=== PATIENT | female | born 1980 | race Caucasian/White ===

== ENCOUNTER → 2020-01-28 | Outpatient (CLI) | payer OTHER ==
[2020-01-28 12:17] LABS: BASOPHIL % 0.5 % (0-2); PLATELET COUNT 216 x10^3mcL (130-400); RED CELL DISTRIBUTION WIDTH 13.6 % (11.5-14.5)
[2020-01-28 12:27] LABS: CALCIUM 8.4 mg/dL (8.5-10.1); CARBON DIOXIDE 28.5 mmol/L (21-32); CHLORIDE SERUM 102 mmol/L (98-107); CREATININE SERUM 0.9 mg/dL (0.6-1.0); GFR1 > 60 mL/min; GLUCOSE SERUM 92 mg/dL (74-106); POTASSIUM SERUM 3.4 mmol/L (3.5-5.1); SODIUM SERUM 138 mmol/L (136-145)
[2020-01-28 12:40] LABS: ALBUMIN 3.7 g/dL (3.4-5.0); ALKALINE PHOSPHATASE 77 U/L (46-116); ALT/SGPT 19 U/L (14-59); AST/SGOT 16 U/L (15-37); BILIRUBIN TOTAL 0.2 mg/dL (0.20-1.00); CHOLESTEROL 176 mg/dL (<200); CHOLESTEROL/HDL RATIO 3.3; HDL CHOLESTEROL 53 mg/dL (40-60); TOTAL PROTEIN, SERUM 7.8 g/dL (6.4-8.2); TRIGLYCERIDES 85 mg/dL (<150); URIC ACID 3.7 mg/dL (2.6-6.0)
[2020-01-28 13:37] LABS: UA SPECIFIC GRAVITY >=1.030 (1.005-1.035); microscopic required? YES; urine erythrocyte TRACE (NEGATIVE)
== END | disposition home or self-care (01) ==
LOC: LB 11:41
PROVIDERS: ATTEND Internal Medicine
DX: M54.5 Low back pain (principal); M25.559 Pain in unspecified hip

== ENCOUNTER 2020-02-24 11:51 | Emergency (ER) | payer OTHER, SELFPAY ==
[~2020-02-24] VITALS: Ht 167.6 cm; Wt 72.6 kg
[2020-02-24 11:58] VITALS: Ht 167.6 cm; Wt 72.6 kg
[2020-02-24 15:28] VITALS: BP 105/60
== END 2020-02-24 15:28 | disposition home or self-care (01) ==
LOC: ED 11:51
DX: B34.9 Viral infection, unspecified (principal); G43.909 Migraine, unspecified, not intractable, without status migrainosus; Z20.828 Contact with and (suspected) exposure to other viral communicable diseases
CPT/HCPCS: 87804; J1885; J7030; Q0092; U0003-CS

== ENCOUNTER 2020-03-12 15:55 | Emergency (ER) | payer OTHER ==
[~2020-03-12] VITALS: Ht 167.6 cm; Wt 70.3 kg
[2020-03-12 16:03] VITALS: BP 138/92; Ht 167.6 cm; Wt 70.3 kg
== END 2020-03-12 17:28 | disposition home or self-care (01) ==
LOC: ED 15:55
DX: S05.02XA Injury of conjunctiva and corneal abrasion without foreign body, left eye, initial encounter (principal); G43.909 Migraine, unspecified, not intractable, without status migrainosus; X58.XXXA Exposure to other specified factors, initial encounter; Y93.89 Activity, other specified; Y92.89 Other specified places as the place of occurrence of the external cause; Y99.8 Other external cause status